=== PATIENT | male | born 1975 | race Caucasian/White ===

== ENCOUNTER 2017-03-09 15:13 | Outpatient (RCR) | payer OTHER ==
[~2017-03-09 15:13] MED LIST: ALPR0.25 PO; AMIT25TA9 PO; GABA300C PO; HYDR-3816 PO; MAGN250T13 PO; POTA-51 PO
== END 2017-03-25 | disposition home or self-care (01) ==
PROVIDERS: ATTEND Orthopaedic Surgery
DX: S43.432D Superior glenoid labrum lesion of left shoulder, subsequent encounter (principal); X58.XXXD Exposure to other specified factors, subsequent encounter; Y99.8 Other external cause status

== ENCOUNTER 2018-10-14 01:39 | Emergency (ER) | payer SELFPAY ==
[~2018-10-14] VITALS: Ht 170.2 cm; Wt 95.3 kg
[~2018-10-14 01:39] MED LIST changes: +HYDR-34 PO; -HYDR-3816 PO
--- OUTSIDE RECORDS SUMMARY | 2018-10-14 01:47 | XMS REPORT | Continuity of Care Document ---
Author Organization Unknown Address Unknown Allergies Active Description Code Type Severity Reaction Onset Reported/Identified Relationship to Patient Clinical Status Yes No Known Drug Allergies [id number] Drug Allergy Unknown N/A 11/07/2015 Medications There is no data. 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 01/06/2017 ROMAN MARROQUIN MD Ot X58.XXXA EXPOSURE TO OTHER SPECIFIED FACTORS, INI 02/10/2017 ROMAN MARROQUIN MD Ot S43.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 02/10/2017 ROMAN MARROQUIN MD Ot X58.XXXA EXPOSURE TO OTHER SPECIFIED FACTORS, INI 03/25/2017 ROMAN MARROQUIN MD, Ot S43.432D SUPERIOR GLENOID LABRUM LESION OF LEFT S 03/25/2017 ROMAN MARROQUIN MD Ot X58.XXXD EXPOSURE TO OTHER SPECIFIED FACTORS, SUB 03/25/2017 ROMAN MARROQUIN MD Ot Y99.8 OTHER EXTERNAL CAUSE STATUS 05/11/2017 JACK MOON MD Ot H46.9 UNSPECIFIED OPTIC NEURITIS 05/11/2017 JACK MOON MD Ot H54.61 UNQUALIFIED VISUAL LOSS, RIGHT EYE, NORM 05/11/2017 JACK MOON MD Ot H53.8 OTHER VISUAL DISTURBANCES 05/11/2017 ROMAN MARROQUIN MD Ot S43.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 Results There is no data. Encounters ACCT No. Visit Date/Time Discharge Status Pt. Type Provider Facility Loc./Unit Complaint [id number] 05/09/2017 08:42:00 05/09/2017 23:59:59 CLS Preadmit JACK MOON MD [facility] RAD RIGHT OPTIC NEURITIS [id number] 03/26/2017 02:41:00 03/26/2017 23:59:59 CLS Preadmit ROMAN MARROQUIN MD [facility] REHAB SUPERIOR GLENOID LABRUM LESION L SHOULDER [id number] 03/09/2017 15:13:00 03/25/2017 00:01:00 DIS Outpatient ROMAN MARROQUIN MD [facility] REHAB SUPERIOR GLENOID LABRUM LESION L SHOULDER [id number] 12/16/2015 08:44:00 12/16/2015 10:29:00 DIS Emergency OCONNELL DO, DEEPA L [facility] ER HEADACHE NECK/BACK PAIN [id number] 12/11/2015 12:51:00 12/11/2015 23:59:59 CLS Outpatient JACK MOON MD [facility] SDC BLURED VISION RT EYE,MS, [id number] 11/07/2015 13:50:00 11/07/2015 23:59:59 CLS Outpatient JACK MOON MD [facility] RAD RT OPTIC NEURITIS W PARTIAL LOSS OF VISION [id number] 10/14/2018 01:44:00 ACT Emergency TRINH SOLIS, JEFFRY Isaac [facility] ER BUG BITES
--- OUTSIDE RECORDS SUMMARY | 2018-10-14 01:47 | XMS REPORT | Clinical Summary ---
Author Author [facility] Organization [facility] Address Unknown Phone Unavailable Care Team Providers Care Museum Archivist Name Role Phone PCP Unavailable Source Comments Some departments are not documenting in the electronic medical record. If you do not see the information that you expected, contact Release of Information in the Health Information Management department at [phone] for further assistance in locating additional records.[facility] Allergies Not on File Medications End Date Status Medication Sig Dispensed Refills Start Date Active ALPRAZolam (XANAX) 0.5 mg Take 0.5 mg 0 tablet by mouth three times daily as needed for Anxiety. Active traMADol (ULTRAM) 50 mg Take 50 mg by 0 tablet mouth twice daily as needed for Pain. Active gabapentin (NEURONTIN) Take 300 mg 0 300 mg by mouth capsuleIndications: 300mg every 8 every morning and 300mg hours. at noon and 600 mg in the Indications: evening 300mg every morning and 300mg at noon and 600 mg in the evening Active Problems Problem Noted Date Optic neuritis, right 05/12/2016 Overview: Symptom onset: August 2015 Current DMD: None Last MRI October 2015 Brain with and without gadolinium is unremarkable LP with 2 OCBs, IgG normal. No IgG index available L ast Assessment & Plan: In the setting of a normal MRI brain and one clinical attack, the likelihood for him to go on to develop MS is 20%. Continue to monitor off DMD for now. Start vitamin D 1,000 IU daily. Encouraged regular exercise. Recommend tobacco cessation. Repeat MRI brain in 1 year. Social History Date Tobacco Use Types Packs/Day Years Used Current Every Day Smoker Smokeless Tobacco: Never Used Alcohol Use Drinks/Week oz/Week Comments Yes Sex Assigned at Date Recorded Not on file Industry Job Start Date Occupation Not on file Not on file Not on file Travel End Travel History Travel Start No recent travel history available. 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 Blood Pressure 127/80 05/12/2016 1:17 PM CATALOGING ASSISTANT Pulse 74 - Temperature - - Respiratory Rate - - Oxygen Saturation - - Inhaled Oxygen - Concentration 05/12/2016 1:17 PM CATALOGING ASSISTANT Weight 89.2 kg (196 lb 9.6 oz) 05/12/2016 1:17 PM CATALOGING ASSISTANT Height 177.8 cm (5' 10") 05/12/2016 1:17 PM CATALOGING ASSISTANT Body Mass Index 28.21 Plan of Treatment Health Maintenance Due Date Last Done Comments PHYSICAL (COMPREHENSIVE) 1984 EXAM HIV SCREENING 1992 DTAP/TDAP VACCINES ( - 10/19/1995 Tdap) INFLUENZA VACCINE 01/24/2019 Results Not on filefrom Last 3 Months Advance Directives Patient has advance care planning documents on file. For more information, please contact: [facility] [address] [place] [address]
[2018-10-14] MEDS ORDERED: RX-MUPIROCIN (BACTROBAN) 2% OINT 22 GM TUBE TOP STA (01:59)
[2018-10-14] MEDS ORDERED: DOXYCYCLINE 100 MG (VIBRAMYCIN) TABLET PO STA (01:59)
--- NOTE | 2018-10-14 02:05 | ED Integumentary General ---
General Chief Complaint: Bite-Animal/Human/Insect Stated Complaint: BUG BITES Source: patient Exam Limitations: no limitations History of Present Illness Date Seen by Provider: Oct 14, 2018 Time Seen by Provider: 01:49 Initial Comments Here with report of what he believes are brown recluse spider bites to the left leg and bilateral forearms. He has several wounds near and around the left knee anterior lateral that are blistered and darkened areas. He has one wound on each forearm posterior aspect that are similar but smaller in appearance to the left knee. Denies other wounds. States that he had brown recluse spider bite previously and it looked like this. Notes that he was cleaning his garage 2-3 days ago when this occurred on his legs. He had slept in his bed that night but usually sleeps on the couch. He did not sleep in the bed until yesterday began and then noticed the bites on his forearms. He had put some ointment over the wounds on his leg and they seemed to be doing a little better although still have some erythema around the wounds. He states that ointment is old and he is not sure what it is. Timing/Duration: getting worse, other (23 days ago) Severity: mild Location: extremities Possible Cause: insect bite Modifying Factors: improves with other (topical antibiotic ointment) Associated Symptoms: blisters, edema; No fever, No nasal congestion, No petechiae, No sore throat Allergies and Home Medications Allergies Coded Allergies: No Known Drug Allergies (Unverified , 11/07/15) Home Medications Alprazolam 0.25 Mg Tablet, 0.25 MG PO TID, (Reported) Amitriptyline HCl 25 Mg Tablet, 25 MG PO HS, (Reported) Gabapentin 300 Mg Capsule, 300 MG PO BID, (Reported) Magnesium Oxide 250 Mg Tablet, 250 MG PO DAILY, (Reported) Potassium Chloride 20 Meq Tablet.er, 20 MEQ PO DAILY, (Reported) Patient Home Medication List Home Medication List Reviewed: Yes Review of Systems Review of Systems Constitutional: see HPI; No chills, No fever EENTM: no symptoms reported Respiratory: no symptoms reported Cardiovascular: no symptoms reported Gastrointestinal: no symptoms reported Skin: see HPI, change in color, lesions Psychiatric/Neurological: No Symptoms Reported Past Fpaogpk-Dqonuy-Evcgra Hx Past Med/Social Hx: Reviewed Nursing Past Med/Soc Hx Patient Social History Alcohol Use: Occasionally Uses Recreational Drug Use: No Smoking Status: Current Everyday Smoker Recent Foreign Travel: No Contact w/Someone Who Travel: No Past Medical History Surgeries: No Respiratory: No Cardiac: Yes Hypertension Neurological: No Genitourinary: No Gastrointestinal: No Musculoskeletal: Yes Chronic Back Pain HEENT: No Cancer: No Psychosocial: Yes Anxiety Family Medical History Reviewed and Corrections made No Pertinent Family Hx Physical Exam Vital Signs Capillary Refill : General Appearance: WD/WN, no apparent distress Cardiovascular: regular rate, rhythm, no murmur Respiratory: lungs clear, normal breath sounds Gastrointestinal: non tender, soft Extremities: normal range of motion, other (skin wounds as described below) Neurologic/Psychiatric: alert, oriented x 3 Skin: warm/dry Skin Problem Location: upper extremities, lower extremities Skin Problem Character: bullous, erythema, papules, patchy, other ( approximately 10 circular wounds with central blisters that are ecchymotic in several of them. Mild erythema surrounding the blisters noted on the leg. On the arm there is papular/blister area with surrounding erythema consistent with bug bite or sting on each arm) Progress/Results/Core Measures Results/Orders My Orders Orders - JEFFRY TSANG MD Rx-Mupirocin 2% Oint (Rx-Bactroban) (10/14/18 01:59) Vibramycin 100mg Po (10/14/18 01:59) Progress Progress Note : Progress Note Seen and evaluated. Wounds are consistent with possible brown recluse bite. There is some surrounding erythema which would lead to concerns for local cellulitis. We will go ahead and treat with topical mupirocin ointment and oral doxycycline. I did discuss with him regarding his blood pressure which is currently 150/94. He states that his blood pressure has been ranging high recently. He was instructed to follow-up with his doctor this week both for recheck of the wounds and to evaluate blood pressure for possible initiation of antihypertensives. Patient verbalize understanding. Discharged home with return precautions. Patient verbalize understanding instructions and agreement with plan. Departure Impression Primary Impression: Spider bite wound Qualified Codes: T63.304A - Toxic effect of unspecified spider venom, undetermined, initial encounter Disposition: 01 HOME, SELF-CARE Condition: Stable Departure-Patient Inst. Decision time for Depature: 02:08 Referrals: ROMAN MARROQUIN MD (PCP) Primary Care Physician Patient Instructions: Insect Bites and Stings (DC), Spider Bites Add. Discharge Instructions: All discharge instructions reviewed with patient and/or family. Voiced understanding. You may take ibuprofen 600 mg every 8 hours as needed for pain/fever. You may also take Tylenol/acetaminophen 1000 mg every 8 hours as needed for pain/fever. You may use the topical antibiotic ointment given twice daily to wounds. It is important that he follow up with your doctor this week for recheck and further evaluation and to discuss your blood pressure. Return for worse pain, fever, vomiting, weakness, breathing problems or other concerns as needed. Scripts Doxycycline Hyclate (Doxycycline Hyclate) 100 Mg Tablet 100 MG PO BID, #20 TAB 0 Refills Prov: JEFFRY TSANG MD 10/14/18 Images Full Body/Extremities Full 1 - Lesion (s), Other-See Progress Note 1 - Lesion (s), Other-See Progress Note 2 - Lesion (s), Other-See Progress Note Copy Copies To 1: GLENIS ACHARYA TIMOTHY D MD Oct 14, 2018 02:05
[2018-10-14 02:08] VITALS: BP 150/94
[2018-10-14] MEDS ORDERED: DOXY100T2 PO (02:10)
== END 2018-10-14 02:16 | disposition home or self-care (01) ==
LOC: EDUNIT# 01:39 → ER 01:44
DX: T63.331A Toxic effect of venom of brown recluse spider, accidental (unintentional), initial encounter (principal); I10 Essential (primary) hypertension; F41.9 Anxiety disorder, unspecified; F17.200 Nicotine dependence, unspecified, uncomplicated
CPT/HCPCS: 99283

== ENCOUNTER → 2018-11-18 | Emergency (ER) | payer SELFPAY, OTHER | LOC: ER 19:59 ==